=== PATIENT | female | born 1980 | race Caucasian/White ===

== ENCOUNTER 2017-03-04 16:06 | Emergency (ER) | payer OTHER ==
--- NOTE | 2017-03-04 17:07 | EDPHY ---
H & P Time Seen by Provider: 03/04/17 17:05 HPI/ROS: CHIEF COMPLAINT: Vaginal bleeding, HISTORY OF PRESENT ILLNESS: 37-year-old female currently between 11 and 13 weeks experienced sudden onset of vaginal bleeding while she was seated at her desk. No abdominal pain or cramping. Started approximately 1-2 hours ago while seated at her desk. No back or flank pain. No dizziness. No antecedent illness. No trauma. No urinary abnormality. No dizziness. No nausea or vomiting. 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 Comp, smiling 2) HEAD: Normocephalic, atraumatic 3) HEENT: Pupils equal, round, reactive to light bilaterally. Sclera anicteric. 4) NECK: Full range of motion, no meningeal signs. 5) LUNGS: Clear auscultation bilaterally 6) HEART: Regular rate and rhythm, no murmur, no heave, no gallop. 7) ABDOMEN: No guarding, no rebound, no focal tenderness, negative McBurney's, negative Way's, negative Rovsing's, negative peritoneal sign,Unable to elicit any abdominal pain on exam 8) MUSCULOSKELETAL: Moving all extremities, no focal areas of tenderness, no obvious trauma. No peripheral edema or discoloration. 9) BACK: No CVA tenderness. 10) SKIN: No rash, no petechiae. DIFFERENTIAL DIAGNOSIS: in no particular include but limited to spontaneous , threatened , completed , vaginal bleeding during (Michelle,Mckay Wade) Constitutional: Initial Vital Signs Temperature (C) 36.6 C 03/04/17 17:17 Heart Rate 81 03/04/17 17:17 Respiratory Rate 18 03/04/17 17:17 Blood Pressure 181/76 H 03/04/17 17:17 O2 Sat (%) 98 03/04/17 17:17 O2 Delivery Mode Room Air Allergies/Adverse Reactions: No Known Allergies Allergy (Unverified 03/04/17 17:16) Medical Decision Making ED Course/Re-evaluation: 5:06 p.m.: approximately 11-13 weeks with spontaneous vaginal bleeding without abdominal pain. Will obtain Rh, ultrasonography and re- evaluate 5:29 p.m.: Due to computer downtime the patient's obstetrical ultrasound was not initially transmitted to the pulmonary function technologist, although was ordered after evaluating her. It is reordered at this time. 6:30 p.m.: Radiology interpretation shows a single living IUP with subchorionic hemorrhage noted. 6:42 p.m.: Discussed the imaging results with the patient, provided my usual and customary threatened miscarriage precautions to the patient. She is Rh positive. 6:55 p.m.: Phone consultation with Dr. Adelia Pope on-call for Dr. Nyla Soto who recommended pelvic rest and calling the office in the morning to be seen tomorrow. Patient states that her vaginal bleeding has stopped.Care and management in consultation with secondary supervising physician Dr Zhong . 7:20 p.m.: Discussed with the patient her urinalysis which shows positive proteinuria, no bacteriuria. She had intake blood pressure of 181/76 the repeat blood pressure at 7:25 p.m. of 117/69. I recommended continuing with plan as before, namely, calling Dr. Nyla Soto office in the morning to be seen tomorrow and usual and customary subchorionic hemorrhage in threatened miscarriage precautions instructions. (Mckay Martinez) Other Provider: The patient was evaluated and managed by the physician assistant professor of business. I have reviewed this chart and I agree with the findings and plan of care as documented , as indicated by my signature. I am the secondary supervising physician. ( Reanna Zhong) - Data Points Laboratory Results: Laboratory Results 03/04/17 17:07 03/04/17 17:07 03/04/17 03/04/17 03/04/17 18:55 17:07 17:07 WBC RBC Hgb Hct MCV MCH MCHC RDW Plt Count MPV Neut % (Auto) Lymph % (Auto) [place] % (Auto) Eos % (Auto) Baso % (Auto) Nucleat RBC Rel Count Absolute Neuts (auto) Absolute Lymphs (auto) Absolute Monos (auto) Absolute Eos (auto) Absolute Basos (auto) Absolute Nucleated RBC Immature Gran % Immature Gran # Sodium 136 mEq/L mEq/L (134-144) Potassium 3.8 mEq/L mEq/L (3.5-5.2) Chloride 101 mEq/L mEq/L (97-110) Carbon Dioxide 22 mEq/l mEq/l (22-31) Anion Gap 13 mEq/L mEq/L (8-16) BUN 13 mg/dL mg/dL (7-23) Creatinine 0.8 mg/dL mg/dL (0.6-1.0) Estimated GFR > 60 Glucose 91 mg/dL mg/dL (70-100) Calcium 9.8 mg/dL mg/dL (8.5-10.4) Beta HCG, Quant 39912.00 mIU/mL H mIU/mL (0-4.83) Urine Color RED Urine Appearance MODERATELY TURBID Urine pH 6.0 (5.0-7.5) Ur Specific [place] 1.011 (1.002-1.030) Urine Protein 2+ H (NEGATIVE) Urine Ketones TRACE H (NEGATIVE) Urine Blood 2+ H (NEGATIVE) Urine Nitrate NEGATIVE (NEGATIVE) Urine Bilirubin NEGATIVE (NEGATIVE) Urine Urobilinogen NEGATIVE EU EU (0.2-1.0) Ur Leukocyte Esterase NEGATIVE (NEGATIVE) Urine RBC 50-182 /hpf H /hpf (0-3) Urine WBC NONE SEEN /hpf /hpf (0-3) Ur Epithelial Cells NONE SEEN /lpf /lpf (NONE-1+) Urine Glucose 1+ H (NEGATIVE) Patient ABO/Rh A POSITIVE 03/04/17 17:07 WBC 10.64 10^3/uL H 10^3/uL (3.80-9.50) RBC 4.42 10^6/uL 10^6/uL (4.18-5.33) Hgb 13.7 g/dL g/dL (12.6-16.3) Hct 39.5 % % (38.0-47.0) MCV 89.4 fL fL (81.5-99.8) MCH 31.0 pg pg (27.9-34.1) MCHC 34.7 g/dL g/dL (32.4-36.7) RDW 11.5 % % (11.5-15.2) Plt Count 236 10^3/uL 10^3/uL (150-400) MPV 10.0 fL fL (8.7-11.7) Neut % (Auto) 77.1 % H % (39.3-74.2) Lymph % (Auto) 15.3 % % (15.0-45.0) [place] % (Auto) 6.0 % % (4.5-13.0) Eos % (Auto) 0.5 % L % (0.6-7.6) Baso % (Auto) 0.7 % % (0.3-1.7) Nucleat RBC Rel Count 0.0 % % (0.0-0.2) Absolute Neuts (auto) 8.21 10^3/uL H 10^3/uL (1.70-6.50) Absolute Lymphs (auto) 1.63 10^3/uL 10^3/uL (1.00-3.00) Absolute Monos (auto) 0.64 10^3/uL 10^3/uL (0.30-0.80) Absolute Eos (auto) 0.05 10^3/uL 10^3/uL (0.03-0.40) Absolute Basos (auto) 0.07 10^3/uL 10^3/uL (0.02-0.10) Absolute Nucleated RBC 0.00 10^3/uL 10^3/uL (0-0.01) Immature Gran % 0.4 % % (0.0-1.1) Immature Gran # 0.04 10^3/uL 10^3/uL (0.00-0.10) Sodium Potassium Chloride Carbon Dioxide Anion Gap BUN Creatinine Estimated GFR Glucose Calcium Beta HCG, Quant Urine Color Urine Appearance Urine pH Ur Specific [place] Urine Protein Urine Ketones Urine Blood Urine Nitrate Urine Bilirubin Urine Urobilinogen Ur Leukocyte Esterase Urine RBC Urine WBC Ur Epithelial Cells Urine Glucose Patient ABO/Rh Medications Given: Discontinued Medications Sodium Chloride (Ns) 1,000 mls @ 0 mls/hr IV ONCE ONE PRN Reason: Wide Open Stop: 03/04/17 18:04 Last Admin: 03/04/17 18:03 Dose: 1,000 mls Departure - Departure Disposition: Home, Routine, Self-Care Clinical Impression: Subchorionic hemorrhage in first trimester Condition: Good Instructions: Subchorionic Hemorrhage (ED) Additional Instructions: Recommend pelvic rest, no sexual intercourse, no foreign bodies in the vagina, no lifting greater than 20 lb. If you develop abdominal cramping, further vaginal bleeding, return to the emergency department Referrals: Nyla Grigsby MD [Medical Doctor] - 1 day without fail (Call the office tomorrow morning to be seen by Dr. Nyla Soto or any of her associates tomorrow)
[2017-03-04 17:20] LABS: % IMMATURE GRANULYOCYTES 0.4 % (0.0-1.1); ABSOLUTE IMMATURE GRANULOCYTES 0.04 10^3/uL (0.00-0.10); ADD DIFF? NO; ADD MORPH? NO; ADD SCAN? NO; ATYPICAL LYMPHOCYTE FLAG 0 (0-99); FRAGMENT RBC FLAG 0 (0-99); HEMATOCRIT 39.5 % (38.0-47.0); HEMOGLOBIN 13.7 g/dL (12.6-16.3); LEFT SHIFT FLG 0 (0-99); LIPEMIA HEMOLYSIS FLAG 90 (0-99); MEAN CELL HEMOGLOBIN CONCENTR. 34.7 g/dL (32.4-36.7); MEAN CELL VOLUME 89.4 fL (81.5-99.8); PLATELET CLUMPS FLAG 10 (0-99); PLATELET COUNT 236 10^3/uL (150-400); RED BLOOD CELL COUNT 4.42 10^6/uL (4.18-5.33); RED CELL DISTRIBUTION WIDTH 11.5 % (11.5-15.2)
[2017-03-04 17:40] LABS: ANION GAP 13 mEq/L (8-16); CALCIUM 9.8 mg/dL (8.5-10.4); CARBON DIOXIDE 22 mEq/l (22-31); CHLORIDE 101 mEq/L (97-110); CREATININE 0.8 mg/dL (0.6-1.0); GLOMERULAR FILTRATION RATE > 60; GLUCOSE 91 mg/dL (70-100); POTASSIUM 3.8 mEq/L (3.5-5.2); SODIUM 136 mEq/L (134-144)
[2017-03-04] MEDS ORDERED: NS 1,000 ML IV ONE (18:03)
[2017-03-04 19:11] LABS: LEUKOCYTE ESTERASE,URINE NEGATIVE (NEGATIVE); NITRITE,URINE NEGATIVE (NEGATIVE)
[2017-03-04 19:17] LABS: COLOR RED; RBC,URINE 50-182 /hpf (0-3); WBC,URINE NONE SEEN /hpf (0-3)
[2017-03-04 19:30] VITALS: BP 122/76; PULSE 81; RESP 16; TEMP 97.7; O2SAT 98
== END 2017-03-04 19:37 | disposition home or self-care (01) ==
DX: O36.8911 Maternal care for other specified fetal problems, first trimester, fetus 1 (principal); Z3A.13 13 weeks gestation of pregnancy

== ENCOUNTER → 2017-04-07 | Outpatient (CLI) | payer OTHER | LOC: FIMAGING 06:58 | PROVIDERS: ATTEND Obstetrics & Gynecology | DX: O09.512 Supervision of elderly primigravida, second trimester (principal); Z3A.17 17 weeks gestation of pregnancy ==

== ENCOUNTER → 2017-05-07 | Outpatient (CLI) | payer OTHER | LOC: FIMAGING 07:49 | PROVIDERS: ATTEND Obstetrics & Gynecology ==

== ENCOUNTER → 2017-05-21 | Outpatient (CLI) | payer OTHER | LOC: FIMAGING 10:25 | PROVIDERS: ATTEND Obstetrics & Gynecology | DX: O09.512 Supervision of elderly primigravida, second trimester (principal); Z3A.23 23 weeks gestation of pregnancy ==

== ENCOUNTER → 2017-06-16 | Outpatient (CLI) | payer OTHER | LOC: FIMAGING 08:39 | PROVIDERS: ATTEND Obstetrics & Gynecology | DX: O09.512 Supervision of elderly primigravida, second trimester (principal); Z3A.27 27 weeks gestation of pregnancy ==

== ENCOUNTER → 2017-06-30 | Outpatient (CLI) | payer OTHER | LOC: FIMAGING 12:22 | PROVIDERS: ATTEND Advanced Practice Midwife | DX: O09.513 Supervision of elderly primigravida, third trimester (principal); O14.13 Severe pre-eclampsia, third trimester; O36.5931 Maternal care for other known or suspected poor fetal growth, third trimester, fetus 1; Z3A.29 29 weeks gestation of pregnancy ==